=== PATIENT | male | born 1980 | race Hispanic/Latino ===

== ENCOUNTER 2025-03-27 17:41 | Emergency (ER) | payer OTHER ==
[~2025-03-27] VITALS: Ht 180.3 cm; Wt 95.9 kg
[2025-03-27] MEDS ORDERED: ACETAMINOPHEN 325 MG TAB ONE (18:08)
[2025-03-27] MEDS ORDERED: IBUPROFEN600 MG PO (18:17)
[2025-03-27] MEDS ORDERED: TYLENOL325 MG PO (18:17)
[2025-03-27] MEDS ORDERED: DIPHENHYDRAMINE25 M2 PO (18:17)
[2025-03-27] MEDS: ACETAMINOPHEN 325 MG TAB PO ONE (18:20)
[2025-03-27 18:27] VITALS: PULSE 100; RESP 18; TEMP 100.4; O2SAT 95
== END 2025-03-27 18:27 | disposition home or self-care (01) ==
LOC: FSED 17:48
DX: R50.9 Fever, unspecified (principal); B34.9 Viral infection, unspecified; R00.0 Tachycardia, unspecified; R53.81 Other malaise; Z11.52 Encounter for screening for COVID-19
CPT/HCPCS: 0223U; 81003; 87400; 99283